=== PATIENT | female | born 1970 | race Caucasian/White ===

== ENCOUNTER 2018-05-21 11:41 | Outpatient (CLI) | payer BC | END 2018-05-21 11:42 | disposition home or self-care (01) | LOC: BICMAMMO 11:41 | PROVIDERS: ATTEND Student in an Organized Health Care Education/Training Program | DX: Z12.31 Encounter for screening mammogram for malignant neoplasm of breast (principal) | CPT/HCPCS: 77063; 77067 ==

== ENCOUNTER 2018-06-27 09:51 | Emergency (ER) | payer BC ==
[2018-06-27 11:13] LABS: Bilirubin Small (Negative); Blood, Urine Negative (Negative); Clarity CLOUDY (Clear); Glucose, Urine (Dipstick) Negative (Negative); Leukocyte Trace (Negative); Nitrite Negative (Negative); Protein, Urine (Dipstick) 30 mg/dL (Neg-Trace); Specific Gravity, Urine 1.031 (1.002-1.036); Urobilinogen 0.2 mg/dL (0.2-1.0)
[2018-06-27 11:14] LABS: Bacteria/HPF 2+ HPF (None Seen); Squamous Epithelial 21-50 HPF (0-3)
[2018-06-27 11:18] LABS: Pathc Cast-AUWi Flag 3.63 (0-2.49)
[2018-06-27 11:29] LABS: Crystals/HPF 1+ CA OXALATE HPF (Negative); Hyaline Casts/LPF NONE SEEN LPF (0-3 Hyaline); Manual Microscopic Reviewed? No Path Casts Seen; RBC/HPF None Seen HPF (0-3)
[2018-06-27] MEDS ORDERED: Dicyclomine 20 MG TAB ONE (11:36)
[2018-06-27] MEDS ORDERED: Lidocaine Viscous Sol 2% 15 ml UD Cup ONE (11:38)
[2018-06-27] MEDS ORDERED: Mag-Al 1200 mg/1200 mg/30 ML UDCUP ONE (11:38)
[2018-06-27 11:56] LABS: #Lymphocytes 1.4 thou/uL (1.20-3.40); #Monocytes 0.8 thou/uL (0.11-0.59); #Neutrophils 3.6 thou/uL (1.40-6.50); %Basophils 0.4 % (0.0-1.0); %Eosinophils 0.8 % (0.0-10.0); %Lymphocytes 24.4 % (21.0-51.0); %Monocytes 13.4 % (0.0-10.0); %Neutrophils 60.9 % (42.0-75.0); Hemoglobin 13.7 g/dL (12.0-16.0); Mean Corpuscular HGB CONC 34.4 g/dL (32.0-36.0); Mean Corpuscular Hemoglobin 32.6 pg (27.0-31.0); Mean Corpuscular Volume 94.5 fL (78.0-98.0); Mean Platelet Volume 7.7 fL (7.4-10.4); Platelet Count 203 thou/uL (130-400); RBC Distribution Width 11.3 % (11.5-14.5); Red Blood Cell (RBC) Count 4.22 mill/uL (4.20-5.40); White Blood Cell (WBC) Count 5.9 thou/uL (4.8-10.8)
[2018-06-27 12:19] LABS: ALT (SGPT) 64 U/L (8-55); AST (SGOT) 62 U/L (5-34); Albumin 4.1 g/dL (3.5-5.0); Alkaline Phosphatase 78 U/L (40-150); Anion Gap 19 mmol/L (10-20); BUN (Urea Nitrogen) 8 mg/dL (7.0-18.7); Bilirubin, Total 0.6 mg/dL (0.2-1.2); Calc. Creatinine Clearance 0 mL/min (70-130); Calcium 9.6 mg/dL (7.8-10.44); Carbon Dioxide 20 mmol/L (22-29); Chloride 101 mmol/L (98-107); Estimated GFR-MDRD 72; Globulin 3.3 g/dL (2.4-3.5); Glucose 223 mg/dL (70-105); Lipase 19 U/L (8-78); Potassium 3.4 mmol/L (3.5-5.1); Protein, Total 7.4 g/dL (6.0-8.3); Sodium 137 mmol/L (136-145)
[2018-06-27] MEDS ORDERED: Ketorolac Tromethamine 30 MG/ML VIAL ONE (13:35)
--- NOTE | 2018-06-27 14:18 | CT ---
CT ABDOMEN AND PELVIS WITH CONTRAST: Date: 06/27/18 HISTORY: Left-sided abdominal pain, right upper quadrant pain. COMPARISON: CT dated 07/13/16. FINDINGS: Liver, spleen, and pancreas are unremarkable. Adrenal glands are unremarkable. Aortoiliac contour is normal. There is extensive subcutaneous edema of the colon. There is mild hyper emia of the sigmoid mesentery. There is enlarging soft tissue mass along the lateral wall of the gallbladder measuring approximately 9.0 mm. There is no acute osseous abnormality. No hydronephrosis. Appendix is visualized and is normal. There is submucosal fatty infiltration of the ascending colon. IMPRESSION: 1. Findings suggesting chronic inflammatory bowel disease with submucosal fatty infiltration through out the colon, predominantly the ascending colon. There is also mild submucosal edema indicating some active acute upon chronic colitis. 2. Normal appendix. 3. Enlarging enhancing mass along the gallbladder wall. This may reflect a mass versus a polyp. None mergent surgical consultation recommended. POS: [facility]
[2018-06-27 14:42] LABS: HBCM Index 0.08 S/CO (0-0.79); Hep A IgM AB Non-Reactive (NonReactive); Hep A IgM S/CO 0.12 S/CO (0-0.79); Hep B Surf Ag Non-Reactive S/CO (NonReactive); Hep C IgG Ab Non-Reactive (NonReactive); Hep C Index 0.22 S/CO (0-0.79); Hepatitis B Core IGM Abs Non-Reactive (NonReactive)
== END 2018-06-27 15:03 | disposition home or self-care (01) ==
LOC: ERS 09:51
DX: K52.9 Noninfective gastroenteritis and colitis, unspecified (principal)
CPT/HCPCS: 36415; 74177; 80053; 80074; 81003; 81015; 83690; 85025; 96361; 96374; J1885

== ENCOUNTER 2018-07-31 09:33 | Inpatient (IN) | payer BC ==
[2018-07-31] MEDS ORDERED: Succinylcholine Chloride 20 MG/ML 10 ml SYRINGE FS ONE (09:46)
[2018-07-31 09:50] LABS: #Eosinphils 0.1 thou/uL (0.0-0.7); #Lymphocytes 1.8 thou/uL (1.20-3.40); #Monocytes 0.4 thou/uL (0.11-0.59); #Neutrophils 4.4 thou/uL (1.40-6.50); %Basophils 0.3 % (0.0-1.0); %Eosinophils 1.4 % (0.0-10.0); %Lymphocytes 26.9 % (21.0-51.0); %Monocytes 5.6 % (0.0-10.0); %Neutrophils 65.8 % (42.0-75.0); Hemoglobin 12.7 g/dL (12.0-16.0); Mean Corpuscular HGB CONC 34.2 g/dL (32.0-36.0); Mean Corpuscular Hemoglobin 32.7 pg (27.0-31.0); Mean Corpuscular Volume 95.7 fL (78.0-98.0); Mean Platelet Volume 7.6 fL (7.4-10.4); Platelet Count 247 thou/uL (130-400); RBC Distribution Width 11.9 % (11.5-14.5); Red Blood Cell (RBC) Count 3.88 mill/uL (4.20-5.40); White Blood Cell (WBC) Count 6.7 thou/uL (4.8-10.8)
[2018-07-31] MEDS ORDERED: Propofol 1,000 MG/100 ML VIAL IV ONE (09:55)
[2018-07-31 09:57] LABS: INR-International Normal Ratio 1.1; PTT 26.8 SEC (22.9-36.1)
[2018-07-31] MEDS ORDERED: Fentanyl 20 mcg/ml (100 ml CADD) IV PRN (09:57)
[2018-07-31 10:06] LABS: ALT (SGPT) 57 U/L (8-55); AST (SGOT) 52 U/L (5-34); Albumin 4.2 g/dL (3.5-5.0); Alkaline Phosphatase 65 U/L (40-150); Anion Gap 17 mmol/L (10-20); BUN (Urea Nitrogen) 11 mg/dL (7.0-18.7); Bilirubin, Total 0.5 mg/dL (0.2-1.2); Calc. Creatinine Clearance 0 mL/min (70-130); Calcium 9.1 mg/dL (7.8-10.44); Carbon Dioxide 14 mmol/L (22-29); Chloride 108 mmol/L (98-107); Estimated GFR-MDRD 71; Globulin 3.1 g/dL (2.4-3.5); Glucose 198 mg/dL (70-105); Potassium 4.4 mmol/L (3.5-5.1); Protein, Total 7.3 g/dL (6.0-8.3); Sodium 135 mmol/L (136-145)
[2018-07-31] MEDS ORDERED: Fentanyl 100 MCG/2 ML VIAL ONE (10:06)
--- NOTE | 2018-07-31 10:16 | RAD ---
AP VIEW CHEST: INDICATIONS: Emergency room examination for chest pain. COMPARISON: None. FINDINGS: There is moderate cardiomegaly and mild pulmonary vascular congestion. No consolidation evident. No acute osseous abnormality is evident. IMPRESSION: 1. Moderate cardiomegaly. 2. Mild pulmonary vascular congestion. POS: [facility]
[2018-07-31 10:33] LABS: pH, Arterial 7.29 (7.35-7.45)
[2018-07-31 10:34] LABS: Analyzer IN Cardio ER; Base Excess (BEa) -9.6 mEq/L (-2.0 to +3.0); CO2 Tension 33.8 mmHg (35.0-45.0); Carboxyhemoglobin (COHb) 0.3 gm% (0.0-3.0); Hemoglobin (Hb) 12.3 g/dL (12.0-16.0); O2 Tension (PaO2) 327.6 mmHg (80.0-100.0); Potassium - ABG Lab 4.4 mmol/L (3.70-5.30); Puncture Site LRA
[2018-07-31] MEDS ORDERED: Promethazine HCl 25 MG/ML VIAL IM PRN (10:41)
[2018-07-31] MEDS ORDERED: Ondansetron HCl/PF 4 MG/2 ML Vial IVP PRN (10:41)
[2018-07-31] MEDS ORDERED: Ondansetron ODT 4 MG TAB PO PRN (10:41)
[2018-07-31] MEDS ORDERED: Dextrose 5% in Water 1,000 ML IV PRN (10:41)
[2018-07-31] MEDS ORDERED: Dextrose 50% Abboject 50 ML SYRINGE SLOW IVP PRN (10:41)
[2018-07-31] MEDS ORDERED: CEFAZOLIN 1 GM VIAL ONE (10:54)
--- NOTE | 2018-07-31 10:56 | CT ---
CT CERVICAL SPINE WITHOUT CONTRAST: COMPARISON: None. HISTORY: Trampled by a horse with neck pain and loss of consciousness. TECHNIQUE: Multiple contiguous axial images were obtained in a CT of the cervical spine without contrast. Sagit marychuy and coronal reformats were performed. FINDINGS: There is mild intervertebral disk space narrowing. The vertebral bodies demonstrate height and align ment without acute fracture or subluxation. No prevertebral soft tissue swelling is seen. An NG tub e and endotracheal tube are partially visualized. The posterior facets are well aligned. Normal alignment of the skull base with the cervical spine is seen. IMPRESSION: No evidence of acute osseous abnormality of the cervical spine. Dr. Pitts notified of the findings at 10:20 a.m. on 07/31/18. CODE CR POS: [facility]
--- NOTE | 2018-07-31 10:56 | CT ---
CT BRAIN WITHOUT CONTRAST: HISTORY: Trampled by horse with head trauma. COMPARISON: None. TECHNIQUE: Multiple contiguous axial images were obtained in a CT of the brain without contrast. FINDINGS: The brain is normal in morphology and attenuation without focal lesions or confluent areas of infarct ion. There is no evidence of hydrocephalus, intracranial hemorrhage, or extraaxial fluid collection. The calvarium and overlying soft tissues are unremarkable. The visualized paranasal sinuses and mast oid air cells are well aerated. IMPRESSION: No evidence of acute intracranial abnormality. Dr. Pitts was notified of the findings at 10:16 a.m. on 07/31/2018. CODE CR POS: [facility]
--- NOTE | 2018-07-31 11:00 | CT ---
CT CHEST AND ABDOMEN AND PELVIS WITH IV CONTRAST: INDICATIONS: Level 1 trauma. History of being trampled by a horse with facial trauma and anterior left chest wall pain. FINDINGS: There are areas of subsegmental volume loss within both lower lobes. No contusion, pleural effusion, or pneumothorax is evident. The patient is intubated with the tip of the ET tube at the distal main trachea. A gastric catheter is seen into the distal gastric body. There is a grade 2, 1.9 cm laceration involving the medial left hepatic lobe on image 44 of series 2. No active extravasation is noted. The pancreas, adrenal glands, and kidneys are normal appearing. The spleen is normal appearing. No free fluid or free air is demonstrated. The Garcia catheter is seen within the decompressed bladder. The uterus is not visualized and is pres umed to be surgically absent. There is a normal appendix in the right lower quadrant. OSSEOUS STRUCTURES: No definite acute osseous abnormality is present. There is mild scattered degen erative change. IMPRESSION: 1. Grade 2 left hepatic lobe liver laceration. No additional acute traumatic injury evident. 2. Findings called to Dr. Pitts at 10:27 a.m. on 07/31/2018. CODE CR POS: [facility]
--- NOTE | 2018-07-31 11:02 | CT ---
CT FACE WITHOUT CONTRAST: HISTORY: Trampled by a horse. Facial trauma. Chest pain. COMPARISON: None. TECHNIQUE: Face CT is performed in the axial plane. Reformatted images are submitted for interpretation. FINDINGS: The visualized brain parenchyma is unremarkable. Adequate aeration of the visualized sinuses and mastoid air cells. Note is made of an endotracheal and nasogastric tube. Evaluation of the aerodigestive tract was subs equently limited. No obvious masses in the oral cavity. Symmetric attenuation of the visualized parotid and submandibular glands. The visualized sternocleid omastoid muscles are unremarkable. There is evidence of periodontal disease with lucency involving multiple teeth. There appears to be a nondisplaced fracture involving the anterior right mandible (coronal image #13, sagittal image #35) . There is overlying soft tissue swelling. A small focus of air attenuation is noted and is presume d to be posttraumatic. The remainder of the mandible and maxillae are unremarkable. Pterygoid plate s are intact. Symmetric appearance of the zygomatic arches. Bilateral ocular lenses are appropriately located. Both globes are intact. Retrobulbar fat is prese rved. Symmetric attenuation of the optic nerves and ocular rectus muscles. IMPRESSION: 1. Posttraumatic soft tissue swelling. 2. Nondisplaced fracture involving the anterior right aspect of the mandible. Results of the study were discussed with Dr. Pitts 07/31/18 at 10:30 a.m. RAUL AVELAR POS: [facility]
--- NOTE | 2018-07-31 11:18 | HP ---
DATE OF ADMISSION: 07/31/2018 HISTORY OF PRESENT ILLNESS: Ms. Colmenares is a 48-year-old woman, who apparently was thrown off her hors e, might have been kicked or stumped thereafter. The patient suffered loss of consciousness. The candice gonzalez was brought by ground EMS to [facility]. She arrives in the emergency department with waxi ng mental status. Initial Rosa coma scale was noted at E1 V2 M5. The patient had some bloody kaitlin pharyngeal secretions. She had external markers of trauma about her face and chest. The patient was electively intubated to protect her airway and to facilitate a timely workup. PAST MEDICAL AND SURGICAL HISTORY: Unknown. SOCIAL HISTORY: Unknown. CURRENT MEDICATIONS: Unknown. ALLERGIES: Unknown. FAMILY HISTORY: Unknown. REVIEW OF SYSTEMS: Could not be obtained due to the patient's decline in mental status. PHYSICAL EXAMINATION: GENERAL: This reveals a 48-year-old normally developed woman, who is otherwise confused following an apparent multi-trauma. The patient, otherwise, appears to be in no acute distress at the time of my evaluation. INITIAL VITAL SIGNS: Include blood pressure 161/99, pulse 91, respiratory rate 16, temperature 97.7 degrees Fahrenheit, oxygen saturation 97% on room air. HEENT EXAMINATION: Reveals pupils equal, round, and reactive to light bilaterally. Midface is, othe rwise, stable. Nares are patent, no discharge. She has bloody oropharyngeal secretions. The mandib le appeared to be unstable to the right of midline. She has no other intraoral lesions present. Tym panic membranes visualized. No hemotympanum is present. CHEST WALL: Stable with no gross deformities or step-offs present. She has abrasions and bruising o brian the right anterior chest wall. Otherwise, no bony crepitance is palpated. HEART: Reveals regular rate and rhythm. No murmurs, rubs, or gallops auscultated. LUNGS: Clear to auscultation bilaterally. Breathing regular and unlabored. ABDOMEN: Soft, nontender, nondistended. Liver and spleen nonpalpable below costal margin. PELVIS: Stable. No gross deformities or step-offs are present. Garcia catheter was inserted, which returned clear demetrius urine. EXTREMITIES: Reveal 2+ radial and pedal pulses bilaterally. No ankle edema is present. MUSCULOSKELETAL EXAMINATION: Once patient was log rolled, thoracic and lumbar spine were palpated fr ee of any bony step-offs or abnormalities. LABORATORY FINDINGS: Today includes a CBC with 6700 white blood cells, hemoglobin and hematocrit 12. 7 and 37.1 respectively. Platelet count 247,000. PTT and INR normal at 26.8 seconds and 1.1 respect ively. Metabolic profile: Sodium 135, potassium is 4.4, chloride is 108, bicarbonate is 14, BUN 11, creatinine 0.86, glucose 198, total bilirubin 0.5, AST and ALT 52 and 57 respectively. Alkaline bing sphatase is 65. Serum amylase is normal at 47. IMAGING: Chest x-ray, unremarkable for any acute pathology. CT scan of the brain and cervical spine revealed no acute pathology. CT scan of the face is remarkable for nondisplaced anterior right beatriz ible fracture. CT scan of the chest is unremarkable for any acute intrathoracic pathology. CT scan of abdomen and pelvis is remarkable for grade 2 right hepatic lobe laceration. CT scan of the thorac ic and lumbar spine revealed no fractures or dislocation. IMPRESSION: 1. Status post fall off a horse. 2. Acute posttraumatic respiratory failure. 3. Acute traumatic brain injury with cerebral concussion. 4. Grade 2 right hepatic lobe laceration. 5. Right mandible fracture. PLAN: 1. OMFS consultation regarding the mandibular fracture. 2. Patient will be admitted to the Intensive Care Unit where we will continue with full mechanical v entilator support until the patient is neurologically and hemodynamically stable. Sedation will be w eaned off, as the patient's neurological function improves. Patient will be extubated as indicated. 3. We will initiate physical and occupational therapy. 4. We will also initiate prophylaxis against gastritis and VTE. The above findings and plan will be communicated to the patient's family once they arrive.
[2018-07-31] MEDS: Sodium Chloride 0.9% 1,000 ML IV SCH ×2 (14:00→20:16)
[2018-07-31] MEDS: Acetaminophen 1,000 MG in Premix Bag 1 BAG IVPB SCH ×2 (14:07→18:19)
[2018-07-31 19:11] LABS: pH, Arterial 7.47 (7.35-7.45)
[2018-07-31 19:12] LABS: Base Excess (BEa) -3.3 mEq/L (-2.0 to +3.0); CO2 Tension 26.7 mmHg (35.0-45.0); Calcium, Ionized 1.11 mmol/L (1.12-1.30); Carboxyhemoglobin (COHb) 0.2 gm% (0.0-3.0); Hemoglobin (Hb) 12.1 g/dL (12.0-16.0); O2 Tension (PaO2) 142.7 mmHg (80.0-100.0); Potassium - ABG Lab 3.8 mmol/L (3.70-5.30)
[2018-07-31 19:13] LABS: ALV-art Gradient 36.325 (0-20); Puncture Site LRA
[2018-07-31] MEDS ORDERED: Ketorolac Tromethamine 30 MG/ML VIAL IVP SCH (21:00)
[2018-07-31] MEDS: Famotidine/PF 20 mg/2ml Vial SLOW IVP SCH (21:09)
[2018-08-01] MEDS: Acetaminophen 1,000 MG in Premix Bag 1 BAG IVPB SCH ×3 (00:30→11:22)
[2018-08-01] MEDS: Fentanyl 100 MCG/2 ML VIAL SLOW IVP PRN ×3 (02:22→08:54)
[2018-08-01] MEDS ORDERED: Sodium Chloride 0.9% 500 ML IV SCH (03:30)
[2018-08-01] MEDS: Sodium Chloride 0.9% 1,000 ML IV SCH (04:08)
[2018-08-01 05:21] LABS: #Lymphocytes 1.7 thou/uL (1.20-3.40); #Monocytes 0.5 thou/uL (0.11-0.59); #Neutrophils 3.3 thou/uL (1.40-6.50); %Basophils 0.6 % (0.0-1.0); %Eosinophils 0.4 % (0.0-10.0); %Lymphocytes 30.1 % (21.0-51.0); %Monocytes 9.5 % (0.0-10.0); %Neutrophils 59.5 % (42.0-75.0); Hemoglobin 11.9 g/dL (12.0-16.0); Mean Corpuscular HGB CONC 34.4 g/dL (32.0-36.0); Mean Corpuscular Hemoglobin 33.1 pg (27.0-31.0); Mean Corpuscular Volume 96.4 fL (78.0-98.0); Platelet Count 214 thou/uL (130-400); White Blood Cell (WBC) Count 5.6 thou/uL (4.8-10.8)
[2018-08-01 05:25] LABS: ALT (SGPT) 41 U/L (8-55); AST (SGOT) 31 U/L (5-34); Albumin 3.5 g/dL (3.5-5.0); Alkaline Phosphatase 51 U/L (40-150); Anion Gap 11 mmol/L (10-20); BUN (Urea Nitrogen) 6 mg/dL (7.0-18.7); Bilirubin, Total 0.5 mg/dL (0.2-1.2); Calc. Creatinine Clearance 107 mL/min (70-130); Calcium 8.2 mg/dL (7.8-10.44); Carbon Dioxide 19 mmol/L (22-29); Chloride 113 mmol/L (98-107); Estimated GFR-MDRD 83; Globulin 2.7 g/dL (2.4-3.5); Glucose 115 mg/dL (70-105); Potassium 3.4 mmol/L (3.5-5.1); Protein, Total 6.2 g/dL (6.0-8.3); Sodium 140 mmol/L (136-145)
[2018-08-01] MEDS ORDERED: Sodium Chloride 0.9% 1,000 ML IV SCH (05:45)
[2018-08-01] MEDS ORDERED: Hydrocortisone Sod Succ/PF 100 mg/2 ml Vial IVP SCH (05:45)
[2018-08-01] MEDS ORDERED: Ketorolac Tromethamine 30 MG/ML VIAL IVP SCH ×2 (06:00)
[2018-08-01] MEDS: Ketorolac Tromethamine 30 MG/ML VIAL IVP SCH ×2 (06:05→11:14)
[2018-08-01 06:42] VITALS: BMI 27.8
[2018-08-01] MEDS: Famotidine/PF 20 mg/2ml Vial SLOW IVP SCH ×2 (08:54→20:01)
[2018-08-01 09:32] LABS: Magnesium 1.6 mg/dL (1.6-2.6); Phosphorus 3.4 mg/dL (2.3-4.7)
[2018-08-01] MEDS ORDERED: traMADol HCl 50 MG TAB PO PRN (11:24)
[2018-08-01] MEDS ORDERED: Cyclobenzaprine 10 MG TAB PO PRN (11:24)
[2018-08-01] MEDS ORDERED: Ibuprofen 800 MG TAB PO SCH (11:30)
[2018-08-01] MEDS ORDERED: Potassium Chloride 40 MEQ in Premix Bag 1 BAG IVPB SCH (11:30)
[2018-08-01] MEDS ORDERED: Magnesium 2 GM/NS 0.9% 100 ML 2 GM in Premix Bag 1 BAG IVPB SCH (11:45)
[2018-08-01] MEDS ORDERED: Chlorhexidine Gluconate 15 ML UDCUP SSP ONE (12:34)
[2018-08-01] MEDS ORDERED: Hydrocortisone 1% Cream 30 GM TUBE ONE (12:34)
[2018-08-01] MEDS ORDERED: Lidocaine 1% w/Epinephrine 1:100K 30 ML VIAL ONE (12:34)
[2018-08-01] MEDS ORDERED: Lidocaine 2% Jelly 5 ML TUBE ONE (12:39)
[2018-08-01] MEDS ORDERED: Oxymetazoline HCl 0.05% ( 15 ML ) ONE ×2 (12:39→13:10)
[2018-08-01] MEDS ORDERED: Fentanyl 100 MCG/2 ML VIAL ONE (12:39)
[2018-08-01] MEDS ORDERED: Lidocaine Viscous Sol 2% 15 ml UD Cup ONE (13:09)
[2018-08-01] MEDS ORDERED: Lidocaine 2% PF 5 ML VIAL ONE (13:11)
[2018-08-01] MEDS ORDERED: Midazolam HCl 2 mg/2 ml Vial ONE ×2 (13:11→13:38)
[2018-08-01] MEDS ORDERED: Clindamycin/D5W 600 mg/50 ml Premix Bag ONE (13:18)
[2018-08-01] MEDS ORDERED: Lidocaine 4% Topical Sol 50 ML BOT ONE (13:32)
--- NOTE | 2018-08-01 15:09 | PRG ---
DATE OF SERVICE: 08/01/2018 SUBJECTIVE: Ms. Colmenares is a 48-year-old woman who was bucked off a horse yesterday. The patient suffered multiple trauma including anterior right mandibular fracture as well as a grade II right hepatic lobe liver laceration. The patient was liberated from the ventilator last night. This morning, she reports generalized body aches. She denies any dyspnea, syncope or chest pain. She also denies any significant abdominal pain. She denies any nausea or vomiting. PHYSICAL EXAMINATION: VITAL SIGNS: This morning includes blood pressure 107/65, pulse 76, respiratory rate is 23, maximum temperature since admission is 98.7 degrees Fahrenheit, oxygen saturation is 97% on room air. HEENT: Reveals pupils equal, round, and reactive to light and accommodation. NECK: Cervical spine is nontender to palpation, active or passive range of motion. C- collar was removed following this examination. CHEST: Chest wall is stable. No gross deformities or step-offs are present. HEART: Reveals regular rate and rhythm, no murmurs or gallops auscultated. LUNGS: Clear to auscultation bilaterally. Her breathing is regular and unlabored. ABDOMEN: Soft, nontender, nondistended. EXTREMITIES: Reveals 2+ radial and pedal pulses bilaterally. No ankle edema is present. NEUROLOGIC: Reveals no focal deficits present. LABORATORY DATA: Includes a CBC with 5600 white blood cells, hemoglobin and hematocrit are stable at 11.9 and 34.7 respectively, platelet count is also stable at 214,000. Metabolic profile: Sodium 140, potassium 3.4, chloride is 113, bicarbonate is 19, BUN is 6, creatinine 0.75, glucose is 115, magnesium 1.6 , phosphorus is 3.4, AST and ALT are now normal at 31 and 41 respectively. Total bilirubin is also normal at 0.5. IMPRESSION: 1. Post-admission day #1, status post fall from a horse. 2. Grade II right hepatic lobe liver laceration. The patient is hemodynamically stable. 3. Acute blood loss anemia, stable. 4. Anterior right mandibular fracture. Patient has been evaluated by OMFS for possible surgical fixation. 5. Acute hypokalemia. 6. Acute hypomagnesemia. PLAN: 1. Correct abnormal electrolytes. 2. The patient is hemodynamically stable from surgical perspective. She has been evaluated by OMFS and will be taken to the surgery later on this afternoon for surgical fixation of the mandibular fracture. Postoperatively, diet will be initiated. 3. We will continue with non-pharmacological VTE prophylaxis for the next of 24 hours and if stable, we will initiate chemical VTE prophylaxis. 4. Increase activity as tolerated. MTDD
[2018-08-01] MEDS ORDERED: Ondansetron HCl/PF 4 MG/2 ML Vial IVP PRN (15:27)
[2018-08-01] MEDS: Lactated Ringer's 1,000 ML IV SCH ×2 (18:25→20:01)
[2018-08-01] MEDS: Acetaminophen 500 MG TAB PO SCH ×3 (18:34→23:54)
[2018-08-01] MEDS: Clindamycin/D5W 600 MG in Premix Bag 1 BAG IVPB SCH (19:53)
[2018-08-01] MEDS: traMADol HCl 50 MG TAB PO PRN (19:54)
[2018-08-01] MEDS: Bacitracin Zinc 1 Packet TOP SCH (20:01)
[2018-08-01] MEDS: Chlorhexidine Gluconate 15 ML UDCUP SSP SCH (20:01)
[2018-08-02] MEDS: Clindamycin/D5W 600 MG in Premix Bag 1 BAG IVPB SCH ×4 (02:48→20:22)
[2018-08-02] MEDS: traMADol HCl 50 MG TAB PO PRN (02:56)
[2018-08-02] MEDS: Acetaminophen 500 MG TAB PO SCH ×4 (05:23→23:28)
[2018-08-02] MEDS: Lactated Ringer's 1,000 ML IV SCH (05:23)
[2018-08-02] MEDS ORDERED: Dicyclomine 20 MG TAB PO PRN (06:05)
[2018-08-02] MEDS ORDERED: Dextrose 5% in Water 1,000 ML IV PRN (06:08)
[2018-08-02] MEDS ORDERED: Insulin Regular 300 UNITS/3 ML VIAL SC PRN ×2 (06:08→08:40)
[2018-08-02] MEDS ORDERED: Dextrose 50% Abboject 50 ML SYRINGE SLOW IVP PRN (06:08)
[2018-08-02] MEDS: Chlorhexidine Gluconate 15 ML UDCUP SSP SCH ×2 (08:15→20:23)
[2018-08-02] MEDS: Bacitracin Zinc 1 Packet TOP SCH ×2 (08:15→20:23)
[2018-08-02] MEDS: Famotidine/PF 20 mg/2ml Vial SLOW IVP SCH ×2 (08:16→20:23)
[2018-08-02] MEDS ORDERED: Potassium Chloride 20 MEQ TAB PO SCH (08:45)
[2018-08-02] MEDS ORDERED: DULAGLUTIDE 0.75 UNIT SC SCH (09:00)
[2018-08-02] MEDS ORDERED: Estradiol 1 MG TAB PO SCH (09:00)
[2018-08-02] MEDS: Enoxaparin Sodium 40 MG/0.4 ML SYRINGE SC SCH (09:39)
[2018-08-02] MEDS: Ibuprofen 800 MG TAB PO SCH ×2 (09:39→16:45)
--- NOTE | 2018-08-02 14:57 | PRG-2 ---
DATE OF SERVICE: 08/02/2018 Dr. Leo Hahn and also resident. SUBJECTIVE: The patient states that she is doing well this morning. She has been tolerating more p. o. intake as well as able to talk better. The patient states that her pain is reduced after her jaw surgery yesterday. The patient denies any nausea or vomiting at this point. OBJECTIVE: VITAL SIGNS: Temperature 98.4, heart rate 69, respirations 14, pulse ox 95 on room air, blood pressu re 121/81. GENERAL: The patient is sitting up in bed, eating pudding, in no acute distress. HEENT: Normocephalic. The patient has sutured incision on her right jaw. CARDIOVASCULAR: Heart regular rate and rhythm with no murmurs. CHEST: Lungs clear to auscultation bilaterally. Unlabored breathing. ABDOMEN: Soft, nontender. Bowel sounds are present. EXTREMITIES: 2+ pulses in all 4 extremities. No edema. NEUROLOGIC: The patient has equal sensation in all 4 extremities. No gross deficits. LABORATORY DATA: None to review today. IMAGING: None to review today. ASSESSMENT: 1. Hospital day #2, postoperative day #1, open reduction internal fixation mandibular fracture. 2. Grade II right hepatic lobe laceration. 3. Posttraumatic pain, well controlled. PLAN: 1. Continue pain management. 2. PT, OT. Continue progressing towards goals. 3. Initiated VTE prophylaxis today. 4. Discontinuing the patient's estrogen replacement due to clotting risk. 5. Increase activity as tolerated. Dr. Hahn saw this patient and we discussed the treatment plan.
[2018-08-02] MEDS ORDERED: Clindamycin 150 MG CAP PO SCH (22:00)
[2018-08-02] MEDS: Clindamycin 150 MG CAP PO SCH (23:28)
[2018-08-03] MEDS: traMADol HCl 50 MG TAB PO PRN (01:12)
[2018-08-03] MEDS: Ibuprofen 800 MG TAB PO SCH ×2 (01:27→09:40)
[2018-08-03] MEDS: Clindamycin 150 MG CAP PO SCH (05:24)
[2018-08-03] MEDS: Acetaminophen 500 MG TAB PO SCH (05:24)
[2018-08-03] MEDS: Bacitracin Zinc 1 Packet TOP SCH (09:41)
[2018-08-03] MEDS: Chlorhexidine Gluconate 15 ML UDCUP SSP SCH (09:41)
[2018-08-03] MEDS: Enoxaparin Sodium 40 MG/0.4 ML SYRINGE SC SCH (09:41)
[2018-08-03] MEDS: Famotidine/PF 20 mg/2ml Vial SLOW IVP SCH (09:41)
[2018-08-03 11:24] VITALS: BP 114/71; TEMP 98.1
--- NOTE | 2018-08-03 17:26 | CON ---
DATE OF CONSULTATION: 07/31/2018 CONSULTING PHYSICIAN: Dr. Hahn with Trauma Surgery Service. HISTORY OF PRESENT ILLNESS: This is a 48-year-old female who was evidently injured by one of her hor ses. Full details of the encounter are not available due to patient's inability to remember such and due to the fact that there was an unwitnessed event. The patient did suffer loss of consciousness. She was eventually brought to the [place] [facility] by ground EMS and was subsequently intub ated secondary to decreased mental status. Examination and imaging showed that the patient had under lying skeletal trauma to the lower jaw and associated soft tissue injuries for which I was consulted. History which is taken from the daughter who is bedside and is likely incomplete. PAST MEDICAL HISTORY: Diabetes, IBS. HOME MEDICATIONS: Metformin, estradiol. PAST SURGICAL HISTORY: Hysterectomy. ALLERGIES: Unknown. REVIEW OF SYSTEMS: Unable to be obtained secondary to the patient's intubation and sedation. PHYSICAL EXAMINATION: VITAL SIGNS: Blood pressure 106/64, pulse 67. The patient is on the ventilator with respiratory rat e 12 and oxygen saturation of 100%. Last temperature is 97.2. GENERAL: The patient is sedated and intubated. HEAD AND NECK: Significantly limited, secondary to oral intubation and orogastric tube is in place. The patient is noted to have significant soft tissue injuries of the bilateral lower lip. The right side lips difficult to fully visualize due to the tubes, but left side lip shows a significant intra oral laceration involving the buccal mucosa and lower labial mucosa and external laceration involving the left lower lip including the jocelyn area. The patient is noted to have significant attachme nt loss and recession of the peridontal structures in the anterior mandible with multiple slightly mo bile teeth. As previously discussed for evaluation of her status with regard to the teeth and jaws, it is unable to be obtained at this time. LABORATORY DATA: CBC shows a white blood cell count 6.7, hemoglobin 12.7 with platelets of 247. Coa gulation studies are essentially normal. CT scan of face shows a dentoalveolar fracture in the teeth 25 through 27 region. The patient also a ppears to have chronic underlying periodontal disease throughout the upper and lower arches. The pat ient also appears to have a vertical root fracture involving tooth #27 towards the apical third regio n. The patient also has significant periapical radiolucency in the tooth #10 -12 region which extend s towards the palate and communicates with the incisive canal. ASSESSMENT: 1. Dentoalveolar fracture teeth 25 through 27 region. 2. Advanced periodontal disease. 3. Multiple soft tissue wounds and lacerations involving the bilateral lower lip region. 4. Vertical root fracture tooth 27. 5. Unilocular radiolucency involving the tooth 10 through 12 region and the palate which could be co nsistent with periapical pathology emanating from one of these teeth or unilateral incisive canal cys t versus some other type of tumor mass. PLAN: 1. Once patient is extubated, we will be able to perform a much more thorough evaluation of full ext ent of the patient's injuries. The patient will need to go the operating room after clearance by tra jame team for definitive treatment of the dentoalveolar fracture and repair of the soft tissue injurie s. 2. Recommend strict oral hygiene and Peridex swabs along with IV antibiotics. 3. We will discuss with Trauma team for coordination and timing of trip to the operating room. Keep the patient n.p.o. after midnight for potential operating room trip on the following day.
--- NOTE | 2018-08-03 18:02 | DIS ---
DATE OF ADMISSION: 07/31/2018 DATE OF DISCHARGE: 08/03/2018 ADMISSSION DIAGNOSES: 1. Status post fall off a horse. 2. Acute posttraumatic respiratory failure. 3. Acute traumatic brain injury with cerebral concussion. 4. Grade II right hepatic lobe laceration. 5. Right mandible fracture. CONSULTATIONS: Oral Maxillofacial Surgery, Dr. Adamson. PROCEDURE: Dentoalveolar fracture repair. SUMMARY: The patient is a 48-year-old female who was riding a horse when she was thrown from the hor se and possibly stepped on by the horse. She was brought to the Emergency Department, evaluated, exa mined, and noted to have the above injuries. Due to the significance of her facial injury, it was fe lt that it was best to control her airway for safety reasons, which she underwent elective intubation in the Emergency Department and subsequently is moved to the Critical Care Unit overnight. The day, she extubated and then underwent evaluation by Oral Surgery, who performed the above proce dure, which she tolerated well. The patient was kept in the hospital long enough to ensure that she was tolerating a diet and her pain was controlled. At the time of discharge, she was tolerating a di et and her pain was controlled. She will follow up with Oral Surgery in 1 week. The patient will al so follow up with the Trauma Clinic with a repeat CBC in 2 weeks. The patient was discharged on clin damycin, Peridex, tramadol, and Flexeril. The patient may follow up sooner as needed.
== END 2018-08-03 12:00 | disposition home or self-care (01) | DRG 40 ==
LOC: ERS 09:33 → CCU 11:06 → SURG A 08-01 16:29
PROVIDERS: ADMIT Surgery; ATTEND Surgery
PROC: 0BH17EZ Insertion of Endotracheal Airway into Trachea, Via Natural or Artificial Opening (ICD-10-PCS; principal; 2018-07-31)
PROC: 5A1935Z Respiratory Ventilation, Less than 24 Consecutive Hours (ICD-10-PCS; 2018-07-31)
PROC: 0CQ1XZZ Repair Lower Lip, External Approach (ICD-10-PCS; 2018-08-01)
PROC: 0CDXXZ1 Extraction of Lower Tooth, Multiple, External Approach (ICD-10-PCS; 2018-08-01)
PROC: 0WB Anatomical Regions, General, Excision (ICD-10-PCS; 2018-08-01)
DX: S06.0X9A Concussion with loss of consciousness of unspecified duration, initial encounter (principal); S36.115A Moderate laceration of liver, initial encounter; J96.90 Respiratory failure, unspecified, unspecified whether with hypoxia or hypercapnia; D62 Acute posthemorrhagic anemia; V80.010A Animal-rider injured by fall from or being thrown from horse in noncollision accident, initial encounter; E87.6 Hypokalemia; E83.42 Hypomagnesemia; S02.671A Fracture of alveolus of right mandible, initial encounter for closed fracture; E11.9 Type 2 diabetes mellitus without complications; Z79.84 Long term (current) use of oral hypoglycemic drugs; K05.6 Periodontal disease, unspecified; S01.511A Laceration without foreign body of lip, initial encounter; S02.5XXA Fracture of tooth (traumatic), initial encounter for closed fracture
CPT/HCPCS: 31500; 36415; 36416; 51702; 70450; 70486; 71045; 71260; 72125; 74177; 80053; 82150; 82533; 82805; 83735; 84100; 85025; 85610; 85730; 86850; 86900; 86901; 90471; 94002; 96365; 96375; G0390; G8978-GP-CM; G8979-GP-CJ; G8987-GO-CM; G8988-GO-CJ; G9159-GN-CH; G9160-GN-CH; J0131; J0690; J1650; J1720; J1815; J1885; J2001; J2250; J2405; J2704; J3010; J3490; J7050; S0028

== ENCOUNTER 2022-04-15 12:59 | Outpatient (CLI) | payer BC | END 2022-04-15 13:00 | disposition home or self-care (01) | LOC: BICMAMMO 12:59 | PROVIDERS: ATTEND Family Medicine | DX: Z12.31 Encounter for screening mammogram for malignant neoplasm of breast (principal) | CPT/HCPCS: 77063; 77067 ==